=== PATIENT | male | born 1985 | race Caucasian/White ===

== ENCOUNTER 2022-04-12 06:58 | Day surgery (SDC) | payer OTHER ==
[~2022-04-12] VITALS: Ht 182.9 cm; Wt 87.8 kg
[~2022-04-12 06:58] MED LIST: AMOCLA875 PO; BENZ100A PO; OMEP20ER PO; Ultram50 MG PO
[2022-04-12] MEDS ORDERED: IBUP800 PO (07:47)
--- NOTE | 2022-04-12 09:18 | NUR ---
04/12/22 0918 Janelle Johnson ROPIVACAINE 0.5% 30 MLS MIXED W/ EPI 0.15 ML (1MG/ML) PER ORDER TO MAKE ROPIVACAINE 0.5% 1:200,000 FOR INJECTION AT OPSITE BY DR WEISS.
--- NOTE | 2022-04-12 10:58 | NUR ---
04/12/22 1058 Frederic Jimenez PT REPORTED 1/10 L ANKLE PAIN UPON ARRIVAL IN STEP DOWN. BEFORE DISCHARGE HE HAD DIFFICULTY VERBALIZING PAIN ON 1-10 SCALE. HOWEVER, HE STATED HIS PAIN WAS TOLERABLE AND LESS THAN IT WAS WHEN HE ARRIVED IN STEP DOWN. HE ALSO EXPRESSED READINESS TO RETURN HOME.
== END 2022-04-12 10:35 | disposition home or self-care (01) ==
LOC: ORSCSDS 06:58
PROVIDERS: Podiatrist Foot & Ankle Surgery
PROC: 0JBR0ZX Excision of Left Foot Subcutaneous Tissue and Fascia, Open Approach, Diagnostic (ICD-10-PCS; principal; 2022-04-12 08:30)
DX: M10.9 Gout, unspecified (principal); M12.272 Villonodular synovitis (pigmented), left ankle and foot; I10 Essential (primary) hypertension; F84.0 Autistic disorder; F41.9 Anxiety disorder, unspecified
CPT/HCPCS: 88305; J0171; J1100; J1885; J2001; J2250; J2405; J2704; J2795; J3010; J7120

== ENCOUNTER → 2022-04-27 | Outpatient (CLI) | payer OTHER ==
[~2022-04-27] MED LIST changes: +IBUP800 PO
== END | disposition home or self-care (01) ==
LOC: LAB 13:30 → LAB SHORT 13:30
DX: M1A.0720 Idiopathic chronic gout, left ankle and foot, without tophus (tophi) (principal); L02.416 Cutaneous abscess of left lower limb
CPT/HCPCS: 87070; 87075; 87205

== ENCOUNTER 2022-08-06 02:26 | Day surgery (SDC) | payer OTHER ==
[~2022-08-06 02:26] MED LIST changes: +DOXY100 PO; +TRAM50 PO
== END 2022-08-08 22:50 | disposition home or self-care (01) ==
LOC: WOUND 02:26
DX: S91.002D Unspecified open wound, left ankle, subsequent encounter (principal); X58.XXXD Exposure to other specified factors, subsequent encounter; M10.9 Gout, unspecified
CPT/HCPCS: A9270; G0463

== ENCOUNTER 2022-08-19 03:24 | Day surgery (SDC) | payer OTHER | END 2022-08-19 22:40 | disposition home or self-care (01) | LOC: WOUND 03:24 | DX: S91.002D Unspecified open wound, left ankle, subsequent encounter (principal); X58.XXXD Exposure to other specified factors, subsequent encounter; M10.9 Gout, unspecified | CPT/HCPCS: G0463 ==

== ENCOUNTER → 2022-08-25 | Day surgery (SDC) | payer OTHER | LOC: WOUND 03:12 | DX: T81.89XD Other complications of procedures, not elsewhere classified, subsequent encounter (principal); S91.002D Unspecified open wound, left ankle, subsequent encounter; M10.9 Gout, unspecified | CPT/HCPCS: A9270; G0463 ==

== ENCOUNTER 2022-09-08 04:59 | Day surgery (SDC) | payer OTHER | END 2022-09-08 23:04 | disposition home or self-care (01) | LOC: WOUND 04:59 | DX: S91.002D Unspecified open wound, left ankle, subsequent encounter (principal); M10.9 Gout, unspecified; L97.322 Non-pressure chronic ulcer of left ankle with fat layer exposed; M25.562 Pain in left knee; M17.12 Unilateral primary osteoarthritis, left knee | CPT/HCPCS: 73560-LT; G0463 ==